=== PATIENT | male | born 1975 | race American Indian/Alaskan Native ===

== ENCOUNTER 2017-01-01 12:06 | Emergency (ER) | payer BC ==
[2017-01-01 12:46] LABS: Hematocrit 41.1 % (35.5-45.6); Hemoglobin 13.5 gm/dl (11.8-15.2); Mean Corpuscular HGB Conc 33 % (32-34); Mean Corpuscular Hemoglobin 33 pg (28-32); Mean Corpuscular Volume 101 fl (84-94); Platelet Count 306 K/mm3 (140-440); Red Blood Count 4.09 M/mm3 (3.65-5.03); Red Cell Distribution Width 13.5 % (13.2-15.2); White Blood Count 5.3 K/mm3 (4.5-11.0)
[2017-01-01 13:01] LABS: Anion Gap 19 mmol/L; Blood Urea Nitrogen 9 mg/dL (9-20); Calcium 9.2 mg/dL (8.4-10.2); Carbon Dioxide 23 mmol/L (22-30); Chloride 104.4 mmol/L (98-107); Glucose 110 mg/dL (75-100); Potassium 3.6 mmol/L (3.6-5.0); Sodium 143 mmol/L (137-145)
[2017-01-01 13:54] LABS: Urine Drugs of Abuse Note Disclamer
[2017-01-01 14:04] LABS: Bilirubin,Urine NEG (Negative); Blood,Urine NEG (Negative); Ketones,Urine NEG (Negative); Leukocyte Esterase,Urine NEG (Negative); Nitrite,Urine NEG (Negative); Protein,Urine <15 mg/dL mg/dL (Negative); Urobilinogen,Urine < 2.0 mg/dL (<2.0)
[2017-01-01 15:23] LABS: Basophils % (Manual) 0 % (0.0-1.8); Blastocytes % (Manual) 0 %; Eosinophils % (Manual) 0 % (0.0-4.3)
[2017-01-01 15:24] LABS: Anisocytosis 1+; Diff Status Complete
[2017-01-01] MEDS ORDERED: ATIVAN PO ONE (20:02)
--- NOTE | 2017-01-01 20:37 | Emergency Department Report ---
ED Psych HPI - General Chief Complaint: Psych Stated Complaint: ANXIETY,DEPRESSION,CHEST PAIN Time Seen by Provider: 01/01/17 20:01 Source: patient Mode of arrival: Ambulatory - History of Present Illness Initial Comments: 41-year-old male with past medical history of depression and has presented to the ED complaining of depression. Patient states of the last month he's been having increased feelings of despair, loneliness. Patient states he's had this feeling the past and was started on psych meds however he's been noncompliant and lost like follow-up. He presents to the emergency room requesting psych referral. Patient denies SI/HI, AH, VH. Pt states while waiting in the ED waiting room he started to have chest pain, anterior chest wall, non radiating, no relaxing nor worsening factors. Pt admits the pain has resolved. MD Complaint: feels depressed -: Gradual, month(s) (1) Associated Psychiatric Symptoms: depression History of same: Yes Quality: constant Improves With: none Worsens With: none Associated Symptoms: other (chest pain ) If Self Harm: admits thoughts of - Related Data Home Medications Medication Instructions Recorded Confirmed Last Taken Elvitegr/Cobicist/Emtric/Tenof 150 mg PO DAILY 01/01/17 01/01/17 12/31/16 21:00 [Stribild Tablet] Previous Rx's Medication Instructions Recorded Last Taken Type Aspirin [Aspirin BABY CHEW TAB] 81 mg PO QDAY #30 tab.chew 01/01/17 Unknown Rx Allergies Allergy/AdvReac Type Severity Reaction Status Date / Time No Known Allergies Allergy Verified 01/01/17 20:10 ED Review of Systems ROS: Stated complaint: ANXIETY,DEPRESSION,CHEST PAIN Other details as noted in HPI Constitutional: denies: chills, fever Eyes: denies: eye pain, eye discharge, vision change ENT: denies: ear pain, throat pain Respiratory: denies: cough, shortness of breath, wheezing Cardiovascular: chest pain. denies: palpitations Endocrine: no symptoms reported Gastrointestinal: denies: abdominal pain, nausea, diarrhea Genitourinary: denies: urgency, dysuria Musculoskeletal: denies: back pain, joint swelling, arthralgia Skin: denies: rash, lesions Neurological: denies: headache, weakness, paresthesias Psychiatric: anxiety, depression. denies: auditory hallucinations, visual hallucinations, homicidal thoughts, suicidal thoughts Hematological/Lymphatic: denies: easy bleeding, easy bruising ED Past Medical Hx - Past Medical History Hx HIV: Yes - Surgical History Past Surgical History?: No - Social History Smoking Status: Never Smoker Substance Use Type: Alcohol, Marijuana - Medications Home Medications: Home Medications Medication Instructions Recorded Confirmed Last Taken Type Aspirin [Aspirin BABY CHEW TAB] 81 mg PO QDAY #30 tab.chew 01/01/17 Unknown Rx Elvitegr/Cobicist/Emtric/Tenof 150 mg PO DAILY 01/01/17 01/01/17 12/31/16 21:00 History [Stribild Tablet] ED Physical Exam - General Limitations: No Limitations ED Course Vital Signs 01/01/17 01/01/17 01/01/17 12:13 20:10 21:45 Temperature 99.3 F Pulse Rate 99 H 75 75 Respiratory 17 18 16 Rate Blood Pressure 128/88 Blood Pressure 111/66 95/60 [Right] O2 Sat by Pulse 98 99 100 Oximetry ED Medical Decision Making - Lab Data Result diagrams: 01/01/17 12:32 01/01/17 12:32 - EKG Data -: EKG Interpreted by Me EKG shows normal: sinus rhythm (80), axis (normal), QRS complexes (normal) - EKG Data When compared to previous EKG there are: previous EKG unavailable - Medical Decision Making pt presenting to ED with depression and chest pain. Pt has been given outpt information to follow up concerning his depression. At this time he does not meet 1013 criteria has he has no SI/HI/AH/VH. He is motivated to seek the help advised to him. Concerning chest pain, I have low suspicion for ACS (Heart Score :1), PE (perc negative) , pNA, pneumohtorax. Pt pain improved at the time of dc and he was stable to dc home with cardiology follow up Critical care attestation.: If time is entered above; I have spent that time in minutes in the direct care of this critically ill patient, excluding procedure time. ED Disposition Clinical Impression: Depression, Chest pain Disposition: DC-01 TO HOME OR SELFCARE Is pt being admited?: No Does the pt Need Aspirin: No Condition: Stable Instructions: Chest Pain (ED) Prescriptions: Aspirin [Aspirin BABY CHEW TAB] 81 mg PO QDAY #30 tab.chew Referrals: PRIMARY CARE, [Primary Care Provider] - 3-5 Days KARINA GARCÍA MD [Staff Physician] - 3-5 Days MARGARETH OLIVER DO [Staff Physician] - 3-5 Days Forms: Work/School Release Form(ED)
[2017-01-01 21:46] VITALS: BP 95/60
== END 2017-01-01 21:48 | disposition home or self-care (01) ==
LOC: ED 12:06
DX: F32.9 Major depressive disorder, single episode, unspecified (principal); R07.9 Chest pain, unspecified; F12.10 Cannabis abuse, uncomplicated; Z79.82 Long term (current) use of aspirin
CPT/HCPCS: 36415; 80048; 80307; 81001; 84484; 85007; 85025; 93005; 93010; 99284; G0480; 80320